=== PATIENT | male | born 1960 | race Caucasian/White ===

== ENCOUNTER 2017-12-01 08:34 | Day surgery (SDC) | payer MEDICAID ==
[~2017-12-01] VITALS: Ht 174 cm; Wt 136.1 kg
[~2017-12-01 08:34] MED LIST: ACET-2178 PO; ASPI-1159 PO; ATOR10TA PO; BENA20TA3 PO; DIPH25CA83 PO; FLUT1DIS2 IH; FLUT9.9S NAS; FURO20TA4 PO; IBUP-2029 PO; LORA2TAB2 PO; MULT-1146 PO; POTA10CA42 PO; SERT50TA PO
[2017-12-01] MEDS ORDERED: LACTATED RINGERS 1,000 ML IV SCH (09:30)
[2017-12-01] MEDS ORDERED: BENA5TAB3 PO (09:33)
[2017-12-01 09:38] LABS: BASOPHILS % 0.6 % (0.0-2.0); EOSINOPHILS % 1.7 % (0.0-5.0); HEMATOCRIT. 41.9 % (42.0-52.0); HEMOGLOBIN. 14.4 g/dL (14.0-18.0); LYMPHOCYTES % 23.3 % (20.0-50.0); MEAN CORPUSCULAR HEMOGLOBIN 30.4 pg (28.0-32.0); MEAN CORPUSCULAR VOLUME 88.5 fL (80.0-94.0); MEAN PLATELET VOLUME 8.4 fl (7.4-10.4); MONOCYTES % 8.9 % (2.0-8.0); NEUTROPHILS % 65.5 % (40.0-76.0); PLATELET 251 x1000/uL (130-400); RED BLOOD CELL COUNT 4.73 mill/uL (4.7-6.1); RED CELL DISTRIBUTION WIDTH 13.8 % (11.6-14.6)
[2017-12-01 09:42] LABS: CHLORIDE 103 mEq/L (98-107)
[2017-12-01 09:45] LABS: INR 1.3; PARTIAL THROMBOPLASTIN TIME 28.3 sec (23.4-31.0); PROTHROMBIN TIME 13.4 sec (9.4-11.6)
[2017-12-01] MEDS ORDERED: MIDAZOLAM HCL 2 MG/2 ML VIAL ONE (11:33)
[2017-12-01] MEDS ORDERED: PROPOFOL 200MG/20ML VIAL IV ONE (11:33)
[2017-12-01] MEDS ORDERED: GLYCOPYRROLATE 0.2 MG/ML 2ML VIAL ONE (11:39)
== END 2017-12-01 13:30 | disposition home or self-care (01) ==
LOC: OR 08:34
PROVIDERS: ATTEND Internal Medicine Gastroenterology
DX: Z12.11 Encounter for screening for malignant neoplasm of colon (principal); K57.30 Diverticulosis of large intestine without perforation or abscess without bleeding; K64.8 Other hemorrhoids; G47.33 Obstructive sleep apnea (adult) (pediatric); I11.9 Hypertensive heart disease without heart failure; I25.10 Atherosclerotic heart disease of native coronary artery without angina pectoris; E78.5 Hyperlipidemia, unspecified; E66.01 Morbid (severe) obesity due to excess calories; J45.909 Unspecified asthma, uncomplicated; E11.9 Type 2 diabetes mellitus without complications; Z68.42 Body mass index [BMI] 45.0-49.9, adult; Z79.82 Long term (current) use of aspirin; Z79.899 Other long term (current) drug therapy; Z79.1 Long term (current) use of non-steroidal anti-inflammatories (NSAID)
CPT/HCPCS: 36415; 45378; 80048; 85025; 85610; 85730; 93005; J2250; J3490; J7120; J2704